=== PATIENT | male | born 1950 | race Caucasian/White ===

== ENCOUNTER → 2020-04-28 11:23 | Outpatient (BNVA) | payer MEDICARE, SELFPAY | PROVIDERS: Family Provider Family Medicine; Visit Provider Family Medicine | DX: E11.9 Type 2 diabetes mellitus without complications (principal); E78.00 Pure hypercholesterolemia, unspecified; I10 Essential (primary) hypertension; Z68.32 Body mass index [BMI] 32.0-32.9, adult; F17.210 Nicotine dependence, cigarettes, uncomplicated | CPT/HCPCS: 80053; 80061; 83036 ==

== ENCOUNTER → 2021-03-08 12:03 | Outpatient (BNVA) | payer MEDICARE, SELFPAY | PROVIDERS: Family Provider Family Medicine; Visit Provider Family Medicine | DX: E11.9 Type 2 diabetes mellitus without complications (principal); E78.00 Pure hypercholesterolemia, unspecified; I10 Essential (primary) hypertension | CPT/HCPCS: 80053; 80061; 83036 ==

== ENCOUNTER → 2021-06-16 11:36 | Outpatient (BNVA) | payer MEDICARE, SELFPAY | PROVIDERS: Family Provider Family Medicine; PCP Family Medicine; Visit Provider Family Medicine | DX: E11.9 Type 2 diabetes mellitus without complications (principal); I10 Essential (primary) hypertension; I48.91 Unspecified atrial fibrillation; R00.1 Bradycardia, unspecified | CPT/HCPCS: 80053; 84439; 84443; 85025 ==

== ENCOUNTER 2021-07-13 15:38 | Outpatient (CLI) | payer MEDICARE, SELFPAY ==
--- NOTE | 2021-07-13 15:45 | USCV_ITS ---
Montrell Bob Age: 70 Gender: M : 1950 Exam Date: 07/13/2021 15:45 Ordering Phys: Jorge Luis Armstrong MD Technologist: Marilin Genao [place] [facility] [place]: HARPREET, A-FIB BP: 128 / HR: 91 Rhythm: Other Technical Quality: Adequate MEASUREMENTS (Male / Female) Normal Values 2D ECHO LV Diastolic Diameter PLAX 4.8 cm 4.2 - 5.9 / 3.9 - 5.3 cm LV Systolic Diameter PLAX 3.7 cm IVS Diastolic Thickness 1.6 cm 0.6 - 1.0 / 0.6 - 0.9 cm IVS Systolic Thickness 2.3 cm LVPW Diastolic Thickness 1.9 cm 0.6 - 1.0 / 0.6 - 0.9 cm LVPW Systolic Thickness 2.0 cm LVOT Diameter 2.0 cm LV Ejection Fraction 2D Teich 46.3 % LV Ejection Fraction MOD 2C 57.4 % LV Ejection Fraction 2C AL 55.9 % LA Diameter 3.1 cm LA Width 3.1 cm LA Height 3.8 cm RA Width 3.1 cm RA Height 3.7 cm Aorta at Sinotubular Diameter 3.1 cm M-MODE Aortic Annulus Diameter 3.2 cm LA Ao Ratio MM 1.0 MV E Point Septal Separation 0.8 cm DOPPLER AV Peak Velocity 139.0 cm/s LVOT Peak Velocity 115.0 cm/s AV Area Cont Eq vti 2.5 cm squared AV Area Cont Eq pk 2.7 cm squared MV Peak Velocity 95.0 cm/s MV Area PHT 3.3 cm squared Mitral E to A Ratio 0.7 MV E' Velocity 37.0 cm/s Mitral E to MV E' Ratio 8.0 Mitral E to LV E' Lateral Ratio 6.1 Mitral E to LV E' Septal Ratio 11.5 TV Peak E Velocity 53.0 cm/s Right Atrial Pressure 3.0 mmHg PV Peak Velocity 89.0 cm/s RV Acceleration Time 0.1 s RV Ejection Time 0.3 s RV AcT/ET 0.2 FINDINGS Left Ventricle Mildly increased left ventricular cavity size. Moderately decreased left ventricular systolic function. Global left ventricular hypokinesis with septal bounce which could be secondary interventricular conduction delay. Grade I/IV diastolic dysfunction (abnormal relaxation filling pattern), normal to mildly elevated filling pressures. Right Ventricle The right ventricle is normal in size and function. Right Atrium The right atrium is normal in size. Left Atrium The left atrium is normal in size. Mitral Valve Moderately thickened mitral valve. No mitral valve stenosis. Mild-moderate mitral valve regurgitation. Aortic Valve Moderate aortic valve calcification. No aortic valve stenosis. No aortic valve regurgitation. Tricuspid Valve Structurally normal tricuspid valve without significant stenosis or regurgitation. Pulmonary artery systolic pressure is normal. Pulmonic Valve Structurally normal pulmonic valve without significant stenosis. There is no pulmonic regurgitation. Pericardium Normal pericardium without effusion. Aorta Normal ascending aorta dimension. CONCLUSIONS 1-Mildly increased left ventricular cavity size. Moderately decreased left ventricular systolic function. Global left ventricular hypokinesis with septal bounce which could be secondary interventricular conduction delay. Grade I/IV diastolic dysfunction (abnormal relaxation filling pattern), normal to mildly elevated filling pressures. 2-Moderate aortic valve calcification. No aortic valve stenosis. No aortic valve regurgitation. 3-Moderately thickened mitral valve. No mitral valve stenosis. Mild-moderate mitral valve regurgitation. 4-Structurally normal tricuspid valve without significant stenosis or regurgitation. Pulmonary artery systolic pressure is normal. 5-There is no pericardial effusion. 6-Right atrial pressure is around 5 mm of mercury. 7-There are no prior echocardiogram studies to compare. Benoit Ash MD (Electronically Signed) Final Date: 21 July 2021 15:11 S
== END 2021-07-13 15:39 | disposition home or self-care (01) ==
LOC: US 15:40
PROVIDERS: PCP Family Medicine; Visit Provider Family Medicine
DX: R00.1 Bradycardia, unspecified (principal); I48.91 Unspecified atrial fibrillation; I08.0 Rheumatic disorders of both mitral and aortic valves
CPT/HCPCS: 93306

== ENCOUNTER 2021-10-05 06:47 | Outpatient (CLI) | payer MEDICARE, SELFPAY ==
[2021-10-05 07:15] VITALS: BMI 30.4
--- NOTE | 2021-10-05 07:17 | NMCV_ITS ---
NM vahid perf SPECT r/s* [id number] Montrell Bob Age: 71 Gender: M : 1950 Exam Date: 10/05/2021 07:50 Ordering Phys: Benoit Ash MD ([email or web address]) Technologist: LARISSA He Exam Location: [facility] Indications: CHEST PAIN STRESS TEST [facility] IMAGE PROTOCOL Rest/Stress 1 Exercise Day Radiopharmaceutical Dose (mCi) Administration Site Administered by Rest: Tc-99m 10.7 IV LARISSA He Sestamibi Stress:Tc-99m 32.6 IV LARISSA Zaman Sestamibi Rest: 05-Oct-2021 60 Discovery 630 Stress: 05-Oct-2021 15 Discovery 630 Radiopharmaceutical was injected at 88 % maximum heart rate. Images obtained in supine and prone position. SPECT RESULTS Technical Quality: Excellent Raw Data Analysis: Normal Image Corrections: No attenuation or motion correction applied Summed Stress Score: 0 Summed Rest Score: 8 Summed Difference Score: 0 PERFUSION FINDINGS Medium-sized area of patchy decreased tracer uptake noted in basal to distal inferior wall suggestive of old myocardial infarction versus scarring. No significant ischemia noted. FUNCTIONAL RESULTS (calculated via Gated SPECT) Stress Image LV EF (%): 60 Stress EDV (mL):101 TID: 0.91 Stress ESV (mL):40 Rest Image LV EF (%): 60 FUNCTIONAL FINDINGS: There is normal left ventricular systolic function. IMPRESSIONS Medium-sized area of old myocardial infarction versus scarring noted in inferior wall without cathleen-infarct ischemia. EKG segment will be documented separately. Benoit Ash MD (Electronically Signed) Final Date: 17 October 2021 19:08 S
--- NOTE | 2021-10-05 07:17 | ECG_ITS ---
[facility] Test Date: 2021-10-05 Pat Name: Montrell Bob Department: Room: Gender: Male Healthcare Specialist: Hortencia Souza : 1950 Requested By: Benoit Ash Order Number: [id number] Saima MD: Eb Paiz M.D. Interpretive Statements NAME OF STUDY: EXERCISE SESTAMIBI STRESS TEST INDICATION: [Chest Pain, ] EXERCISE DATA: The patient was exercised by Dwayne protocol. Baseline heart rate was 90 beats per minute. Baseline blood pressure was 145/102 millimeters of mercury. Target heart rate was 124 beats per minute. Maximum heart rate achieved was 149, which was 120% of the target heart rate. Maximum blood pressure was 215/102 millimeters of mercury. Total exercise time was 4 minutes 23 seconds. Maximum METs achieved was 7, maximum VO2 was 24.5. The reason for ending the test was maximal effort achieved. The patient complained of breath during the stress test, which then resolved at the end of the test. ELECTROCARDIOGRAM: BASELINE: Showed sinus rhythm, normal axis, no significant ST-T changes at the baseline noted. Frequent PVCs [] EXERCISE: At the peak exercise level, [] No significant ST-T changes suggestive of ischemia noted. [] RECOVERY: During the recovery period, heart rate dropped appropriately. No significant ST-T changes in the recovery suggestive of ischemia noted. Frequent PVCs [] CONCLUSION: 1. Exercise capacity fair. 2. Heart rate response was appropriate 3. Blood pressure response was appropriate 4. Symptoms not suggestive of ischemia. 5. Electrocardiogram portion of the stress test was not suggestive of ischemia. 6. Nuclear scan will be documented separately. Electronically Signed On 10-08-2021 13:16:58 DIRECTOR OF INSTRUCTION by Eb Paiz M.D. [email or web address]
[2021-10-05 09:13] VITALS: BP 152/105; PULSE 105
== END 2021-10-05 06:48 | disposition home or self-care (01) ==
PROVIDERS: PCP Family Medicine; Visit Provider Internal Medicine Cardiovascular Disease
DX: R07.9 Chest pain, unspecified (principal)
CPT/HCPCS: 78452; 93017; A9500

== ENCOUNTER → 2022-03-29 14:06 | Outpatient (BNVA) | payer MEDICARE, SELFPAY | PROVIDERS: PCP Family Medicine; Visit Provider Internal Medicine Cardiovascular Disease | DX: I11.9 Hypertensive heart disease without heart failure (principal); I49.3 Ventricular premature depolarization; E78.00 Pure hypercholesterolemia, unspecified; E11.9 Type 2 diabetes mellitus without complications; F17.200 Nicotine dependence, unspecified, uncomplicated; Z79.84 Long term (current) use of oral hypoglycemic drugs | CPT/HCPCS: 99214 ==

== ENCOUNTER → 2022-06-12 14:47 | Outpatient (BNVA) | payer MEDICARE, SELFPAY | PROVIDERS: PCP Family Medicine; Visit Provider Family Medicine | DX: E11.9 Type 2 diabetes mellitus without complications (principal); E78.00 Pure hypercholesterolemia, unspecified; I10 Essential (primary) hypertension; R00.1 Bradycardia, unspecified; Z00.00 Encounter for general adult medical examination without abnormal findings | CPT/HCPCS: 80053; 83036; 85025 ==

== ENCOUNTER 2022-09-13 11:55 | Outpatient (CLI) | payer MEDICARE, SELFPAY ==
--- NOTE | 2022-09-13 12:11 | XRR_ITS ---
PROCEDURE INFORMATION: Exam: XR Chest Exam date and time: 09/13/2022 12:15 PM Age: 71 years old Clinical indication: Shortness of breath; Additional info: Increasing shortness of breath p week TECHNIQUE: Imaging protocol: Radiologic exam of the chest. Views: 2 views. COMPARISON: No relevant prior studies available. FINDINGS: Lungs: There is bilateral emphysema with an upper lobe predominance. No pulmonary vascular congestion, pulmonary edema or pneumonia. Pleural spaces: No pleural effusion or pneumothorax. Heart/Mediastinum: The cardiac silhouette is not enlarged. The mediastinal contours are normal. Bones/joints: No acute osseous abnormality Soft tissues: Left epicardial fat pad. XR/XR chest 2V* [id number] IMPRESSION: Emphysema.
== END 2022-09-13 11:56 | disposition home or self-care (01) ==
PROVIDERS: PCP Family Medicine; Visit Provider Family Medicine
DX: J44.9 Chronic obstructive pulmonary disease, unspecified (principal); R06.02 Shortness of breath
CPT/HCPCS: 71046

== ENCOUNTER → 2022-09-27 13:51 | Outpatient (BNVA) | payer MEDICARE, SELFPAY | PROVIDERS: PCP Family Medicine; Visit Provider Internal Medicine Cardiovascular Disease | DX: I49.3 Ventricular premature depolarization (principal); I11.9 Hypertensive heart disease without heart failure; F17.210 Nicotine dependence, cigarettes, uncomplicated | CPT/HCPCS: 99214 ==

== ENCOUNTER 2023-03-15 12:31 | Outpatient (CLI) | payer MEDICARE, SELFPAY ==
--- NOTE | 2023-03-15 12:45 | USCV_ITS ---
Montrell Bob Age: 72 Gender: M : 1950 Exam Date: 03/15/2023 12:57 Ordering Phys: Sanaz Tariq MD ([email or web address]) Technologist: Rosi Garcia Exam Location: [facility] [place] Indication: PVC AND HX OF IA BP: 140 / 85 HR: 90 Rhythm: Sinus Technical Quality: Adequate MEASUREMENTS (Male / Female) Normal Values 2D ECHO LV Diastolic Diameter PLAX 4.4 cm 4.2 - 5.9 / 3.9 - 5.3 cm LV Systolic Diameter PLAX 3.7 cm LV Chamber Size 3.5 cm IVS Diastolic Thickness 0.9 cm 0.6 - 1.0 / 0.6 - 0.9 cm IVS Systolic Thickness 1.6 cm LVPW Diastolic Thickness 1.5 cm 0.6 - 1.0 / 0.6 - 0.9 cm LVPW Systolic Thickness 1.7 cm RV Chamber Size 3.6 cm LVOT Diameter 2.1 cm LV Ejection Fraction 2D Teich 21.7 % LV Ejection Fraction MOD 2C 56.3 % LV Ejection Fraction 2C AL 60.3 % LA Diameter 3.4 cm LA Width 3.2 cm LA Height 3.7 cm RA Width 3.3 cm RA Height 3.4 cm Aorta at Sinotubular Diameter 3.1 cm IVC Diameter 2.4 cm M-MODE Aortic Annulus Diameter 4.0 cm LA Ao Ratio MM 0.9 MV E Point Septal Separation 0.6 cm DOPPLER AV Peak Velocity 144.0 cm/s LVOT Peak Velocity 89.0 cm/s AV Area Cont Eq vti 2.3 cm squared AV Area Cont Eq pk 2.1 cm squared MV Peak Velocity 105.0 cm/s MV Area PHT 4.4 cm squared Mitral E to A Ratio 0.8 MV E' Velocity 45.5 cm/s Mitral E to MV E' Ratio 12.3 Mitral E to LV E' Lateral Ratio 12.1 Mitral E to LV E' Septal Ratio 12.5 TR Peak Velocity 104.8 cm/s TR Peak Gradient 4.4 mmHg TR Mean Velocity 82.3 cm/s TR Mean Gradient 2.9 mmHg TR Velocity Time Integral 28.8 cm TV Peak E Velocity 50.0 cm/s Right Atrial Pressure 3.0 mmHg Pulmonary Artery Systolic Pressu 7.4 mmHg RV Acceleration Time 0.2 s RV Ejection Time 0.3 s RV AcT/ET 0.6 FINDINGS Left Ventricle Normal left ventricular size, systolic function and wall thickness with no regional wall motion abnormalities. Left ventricular ejection fraction is estimated at 55-60 %. Normal diastolic function. Right Ventricle Normal right ventricular size and systolic function. Right Atrium Normal right atrial size. Left Atrium Upper normal left atrial size. Mitral Valve Structurally normal mitral valve. No mitral valve stenosis. Trace mitral valve regurgitation. Aortic Valve Structurally normal trileaflet aortic valve. No aortic valve stenosis. No aortic valve regurgitation. Tricuspid Valve Structurally normal tricuspid valve. Trace tricuspid valve regurgitation. Pulmonic Valve Pulmonic valve not well visualized. Pericardium No pericardial effusion. Aorta Normal size aortic root and proximal ascending aorta. IVC Normal sized inferior vena cava. CONCLUSIONS 1. Normal left ventricular size, systolic function and wall thickness with no regional wall motion abnormalities. Left ventricular ejection fraction is estimated at 55 %. Normal diastolic function. 2. When compared to study dated 07/13/2021, left ventricular systolic function seems to have improved. Sanaz Tariq MD (Electronically Signed) Final Date: 18 March 2023 14:54 S
== END 2023-03-15 12:32 | disposition home or self-care (01) ==
PROVIDERS: PCP Family Medicine; Visit Provider Internal Medicine Cardiovascular Disease
DX: I49.3 Ventricular premature depolarization (principal); I25.2 Old myocardial infarction
CPT/HCPCS: 93306

== ENCOUNTER → 2023-03-28 15:15 | Outpatient (BNVA) | payer MEDICARE, SELFPAY | PROVIDERS: PCP Family Medicine; Visit Provider Internal Medicine Cardiovascular Disease | DX: I49.3 Ventricular premature depolarization (principal); E78.00 Pure hypercholesterolemia, unspecified; E11.9 Type 2 diabetes mellitus without complications; I11.9 Hypertensive heart disease without heart failure; Z79.84 Long term (current) use of oral hypoglycemic drugs; Z87.891 Personal history of nicotine dependence | CPT/HCPCS: 99214 ==

== ENCOUNTER → 2023-06-04 09:05 | Outpatient (BNVA) | payer MEDICARE, SELFPAY | PROVIDERS: PCP Family Medicine; Visit Provider Specialist | DX: D10.6 Benign neoplasm of nasopharynx (principal) | CPT/HCPCS: 80048 ==

== ENCOUNTER 2023-09-14 14:43 | Outpatient (CLI) | payer MEDICARE, SELFPAY ==
--- NOTE | 2023-09-14 14:49 | CT_ITS ---
WS: [id number] CT NECK TECHNIQUE: Contrast-enhanced CT of the neck with coronal and sagittal reformatted images. CLINICAL INFORMATION: BENIGN NEOPLASM OF NASOPHARYNX COMPARISON: MRI February 2019 DLP: 321.[address] scans at [facility] use at least one of these dose optimization techniques: automated e xposure control; mA and/or kV adjustment per patient size (includes targeted exams where dose is matc hed to clinical indication); or iterative reconstruction. FINDINGS: Prominent soft tissue in the posterior nasopharynx similar to 2019 with associated cystic change. Nor mal parapharyngeal fat. Prominent lingual tonsils with narrowing of the RIGHT greater than LEFT kan cula. Increased soft tissue in the posterior pharyngeal mucosal space similar to 2019 Paranasal sinuses and mastoid air cells are well aerated. Normal parotid glands and submandibular gla nds. Bilateral prominent cervical lymph nodes LEFT greater than RIGHT appear similar to 2019 with a l arge LEFT greater than RIGHT jugulodigastric lymph nodes. Largest LEFT level 2 cervical lymph nodes m easure 9 to 10 mm. Prominent LEFT posterior triangle lymph nodes measuring up to 9 mm also similar in appearance to 2019. Normal thyroid. Emphysematous changes in the lung apices. Mild spondylitic changes cervical spine. IMPRESSION: 1. No significant changes since MRI 2019. 2. Again seen is prominent adenoid tissue in the posterior nasopharynx with prominent enhancing lymp hoid tissue at the level of the lingual tonsils and pharyngeal mucosal space LEFT greater than RIGHT. Partial effacement of the vallecula RIGHT greater than LEFT. Recommend direct visualization. 3. Prominent cervical lymph nodes with LEFT greater than RIGHT lymphadenopathy with enhancement morgan lar to 2019 LEFT level 2 and posterior triangle lymph nodes measuring 9 to 10 mm short axis dimension 4. No other new findings.
[2023-09-14 15:25] LABS: Blood Urea Nitrogen 19 mg/dL (8-23)
[2023-09-14] MEDS: iohexol 350 mg/mL 500 mL Btl (per mL) IV (15:30)
== END 2023-09-14 14:44 | disposition home or self-care (01) ==
LOC: RAD 14:43
PROVIDERS: PCP Family Medicine; Visit Provider Specialist
DX: D10.6 Benign neoplasm of nasopharynx (principal)
CPT/HCPCS: 70491; 82565; 84520; Q9967